=== PATIENT | male | born 1965 | race Caucasian/White ===

== ENCOUNTER 2016-06-18 13:12 | Emergency (ER) | payer OTHER | END 2016-06-18 15:14 | disposition home or self-care (01) | DX: S60.222A Contusion of left hand, initial encounter (principal); W22.8XXA Striking against or struck by other objects, initial encounter; I10 Essential (primary) hypertension; E78.00 Pure hypercholesterolemia, unspecified; E11.9 Type 2 diabetes mellitus without complications; Z79.84 Long term (current) use of oral hypoglycemic drugs; E11.65 Type 2 diabetes mellitus with hyperglycemia ==

== ENCOUNTER 2017-10-14 10:47 | Emergency (ER) | payer OTHER ==
[2017-10-14] MEDS ORDERED: LIDOCAINE 1%-EPI 1:100000 30 ML MDV SUBQ STA (12:33)
[2017-10-14] MEDS ORDERED: cephALEXin 250 MG CAPSULE PO STA (12:33)
--- NOTE | 2017-10-14 12:36 | ED Physician Documentation ---
History of Present Illness - Stated complaint Stated Complaint: R KNEE LAC - Chief complaint Chief Complaint: Laceration - Additonal information Additional information: hx from pt 52 m lac to R knee from karen aguilera Review of Systems Skin: reports: Laceration (s) PD PAST MEDICAL HISTORY - Past Medical History Past Medical History: Yes Cardiovascular: Hypertension, High cholesterol Endocrine/Autoimmune: Type 2 diabetes Psych: Post traumatic stress disorder - Past Surgical History Past Surgical History: Yes General: Cholecystectomy, Appendectomy HEENT: Rhinoplasty - Present Medications Home Medications: Ambulatory Orders Medication Instructions Recorded Confirmed Gabapentin 600 mg PO BID 11/30/15 10/14/17 Simvastatin 40 mg PO DAILY 11/30/15 10/14/17 metFORMIN [Glucophage] 500 mg PO BID 11/30/15 10/14/17 Hydrochlorothiazide/Lisinoprol 12.5 mg DAILY 02/06/16 10/14/17 Loratadine 10 mg PO DAILY 02/06/16 10/14/17 Cephalexin [Keflex] 500 mg PO Q6H #20 capsule 10/14/17 - Allergies Allergies/Adverse Reactions: Allergies Allergy/AdvReac Type Severity Reaction Status Date / Time No Known Drug Allergies Allergy Verified 10/14/17 11:08 - Social History Does the pt smoke?: No Smoking Status: Never smoker Does the pt drink ETOH?: No Does the pt have substance abuse?: No - Immunizations Immunizations are current?: Yes - POLST Patient has POLST: No PD ED PE NORMAL - Vitals Vital signs reviewed: Yes - Extremities Extremities: Other (V shaped partial thickness lac over R patella MSV intact) Results - Vitals Vitals: Vital Signs - 24 hr 10/14/17 11:02 Temperature 36.1 C L Heart Rate 77 Respiratory 18 Rate Blood Pressure 144/79 H O2 Saturation 97 Oxygen O2 Source Room air Procedures - Laceration (location) R knee Length in cm: 3 Wound type: Irregular Neurovascular status: Sensory intact, Motor intact Anesthesia: Lidocaine 1% with epi Wound Preparation: Irrigated copiously NS (by nurse Tisha) Skin layer closure: Francia, Other (3) Other: Patient tolerated well, No complications, Neurovascular intact, Dressing applied, Tetanus UTD Complexity: Simple PD MEDICAL DECISION MAKING - ED course ED course: MSE exam provided injury identified = lac with high risk for infection 2/2 organic matter wound care, francia, prophylactic ab tdap UTD feel pt safe for dc - Sepsis Event Vital Signs: Vital Signs - 24 hr 10/14/17 11:02 Temperature 36.1 C L Heart Rate 77 Respiratory 18 Rate Blood Pressure 144/79 H O2 Saturation 97 Oxygen O2 Source Room air Departure - Departure Disposition: 01 Home, Self Care Clinical Impression: Laceration Condition: Good Instructions: ED Laceration All Prescriptions: Cephalexin [Keflex] 500 mg PO Q6H #20 capsule Comments: Keep the wound clean Apply antibiotic ointment every day Take the keflex prescribed to prevent infection [place] out 10 days This wound is high rsk for infection - we washed it carefully and provided prophylactic antibitoics but it still might get infected - if you notice severe pain, swelling, excessive redness, streaking or drainage, please come back to the ER
[2017-10-14 13:39] VITALS: BP 154/92
[2017-10-14] MEDS ORDERED: BACITRACIN OINT TOP STA (13:42)
== END 2017-10-14 13:46 | disposition home or self-care (01) ==
LOC: ED 10:47
DX: S81.011A Laceration without foreign body, right knee, initial encounter (principal); W29.3XXA Contact with powered garden and outdoor hand tools and machinery, initial encounter; I10 Essential (primary) hypertension; E78.00 Pure hypercholesterolemia, unspecified; E11.9 Type 2 diabetes mellitus without complications; Z79.84 Long term (current) use of oral hypoglycemic drugs
CPT/HCPCS: 12002; 99283; A9270

== ENCOUNTER 2018-01-30 07:40 | Emergency (ER) | payer OTHER ==
[2018-01-30] MEDS ORDERED: LIDOCAINE 1%-EPI 1:100000 30 ML MDV TD STA (07:49)
[2018-01-30] MEDS ORDERED: BACITRACIN OINT TOP STA (07:50)
--- NOTE | 2018-01-30 07:53 | ED Physician Documentation ---
History of Present Illness - Stated complaint Stated Complaint: L ARM LAC/INJ - Additonal information Additional information: hx from pt 52 male slipped on ice and hit back of L FA on 5th wheel suffering a lac tdap UTD per pt Review of Systems Skin: reports: Laceration (s) PD PAST MEDICAL HISTORY - Past Medical History Cardiovascular: Hypertension, High cholesterol Endocrine/Autoimmune: Type 2 diabetes Psych: Post traumatic stress disorder - Past Surgical History Past Surgical History: Yes General: Cholecystectomy, Appendectomy HEENT: Rhinoplasty - Present Medications Home Medications: Ambulatory Orders Medication Instructions Recorded Confirmed Simvastatin 40 mg PO DAILY 11/30/15 10/14/17 metFORMIN [Glucophage] 500 mg PO BID 11/30/15 10/14/17 Loratadine 10 mg PO DAILY 02/06/16 10/14/17 Lisinopril [Prinivil] 10 mg pe 01/30/18 Paroxetine HCl [Paroxetine ER] 37.5 mg PO 01/30/18 - Allergies Allergies/Adverse Reactions: Allergies Allergy/AdvReac Type Severity Reaction Status Date / Time No Known Drug Allergies Allergy Verified 01/30/18 07:52 - Social History Does the pt smoke?: No Smoking Status: Never smoker Does the pt drink ETOH?: No Does the pt have substance abuse?: No - Immunizations Immunizations are current?: Yes - POLST Patient has POLST: No PD ED PE NORMAL - Vitals Vital signs reviewed: Yes - Extremities Extremities: Other (approx 6 inch linear lac along posterior/ulnar aspect L FA, MSV intact, TTP and STS but no bony TTP) Results - Vitals Vitals: Vital Signs - 24 hr 01/30/18 07:50 Temperature 36.4 C L Heart Rate 62 Respiratory 20 Rate Blood Pressure 187/106 H O2 Saturation 96 Oxygen O2 Source Room air - Rads (name of study) elbow and FA Radiology: See rad report (neg) Procedures - Laceration (location) L FA Length in cm: 8 Wound type: Linear Neurovascular status: Sensory intact, Motor intact Anesthesia: Lidocaine 1% with epi Wound Preparation: Irrigated copiously NS (by ER staff), Wound explored, To the base. No: FB identified Skin layer closure: Nylon, Interrupted, Size #-0 - enter number (4), Sutures - enter # (15) Other: Patient tolerated well, No complications, Neurovascular intact, Dressing applied, Tetanus UTD Complexity: Simple Departure - Departure Disposition: Home, Self Care Clinical Impression: Laceration Condition: Good Instructions: ED Laceration All Follow-Up: KEYANA BARNHART [Primary Care Provider] - Comments: The xrays are fine - no broken bones Even with good wound care some wound can become infected. It is important that you wash to wound every day and apply antibiotic ointment twice a day. If any redness or streak or fever or drainage develop, please come back to the ER. Else suture can be removed in 10 days - you PMD can probably do that or you can come back to the ER Your blood pressure was high today - please follow up with your PMD for a recheck
[2018-01-30] MEDS ORDERED: IBUPROFEN 400 MG TABLET PO STA (08:12)
[2018-01-30] MEDS ORDERED: ACETAMINOPHEN 325 MG TABLET PO STA (08:12)
--- NOTE | 2018-01-30 09:01 | XRAY Report ---
Reason: fall Procedure Date: 01/30/2018 Accession Number: [id number] / [id number] Procedure: XR - Forearm LT CPT Code: FULL RESULT: EXAM: LEFT ELBOW RADIOGRAPHY LEFT FOREARM RADIOGRAPHY EXAM DATE: 01/30/2018 08:44 AM. CLINICAL HISTORY: Fall. COMPARISON: None. TECHNIQUE: Left Elbow 3 views, left forearm 2 views. FINDINGS: Bones: Normal. No fractures or bone lesions. Joints: Normal. No effusion. No subluxation. Soft Tissues: Normal. No soft tissue swelling. IMPRESSION: 1. Normal left elbow radiography. 2. Normal left forearm radiography. [facility]
--- NOTE | 2018-01-30 09:01 | XRAY Report ---
Reason: fall Procedure Date: 01/30/2018 Accession Number: [id number] / [id number] Procedure: XR - Elbow 3 View LT CPT Code: FULL RESULT: EXAM: LEFT ELBOW RADIOGRAPHY LEFT FOREARM RADIOGRAPHY EXAM DATE: 01/30/2018 08:44 AM. CLINICAL HISTORY: Fall. COMPARISON: None. TECHNIQUE: Left Elbow 3 views, left forearm 2 views. FINDINGS: Bones: Normal. No fractures or bone lesions. Joints: Normal. No effusion. No subluxation. Soft Tissues: Normal. No soft tissue swelling. IMPRESSION: 1. Normal left elbow radiography. 2. Normal left forearm radiography. [facility]
[2018-01-30 09:29] VITALS: BP 148/92
== END 2018-01-30 09:28 | disposition home or self-care (01) ==
LOC: ED 07:40
DX: S51.812A Laceration without foreign body of left forearm, initial encounter (principal); W00.0XXA Fall on same level due to ice and snow, initial encounter; I10 Essential (primary) hypertension; E78.00 Pure hypercholesterolemia, unspecified; E11.9 Type 2 diabetes mellitus without complications; Z79.84 Long term (current) use of oral hypoglycemic drugs
CPT/HCPCS: 12015; 73080; 73090; 99283; A9270

== ENCOUNTER 2018-07-17 08:55 | Emergency (ER) | payer OTHER ==
[2018-07-17 09:03] VITALS: BP 183/96
[2018-07-17] MEDS ORDERED: KETOROLAC 60 MG/2 ML VIAL IM STA (09:57)
[2018-07-17] MEDS ORDERED: CHERRY SYRUP 10 ML UDC PO ONE (09:57)
[2018-07-17] MEDS ORDERED: DEXAMETHASONE 10 MG/ML VIAL PO STA (09:57)
--- NOTE | 2018-07-17 10:00 | ED Physician Documentation ---
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 Review of Systems Constitutional: denies: Fever Eyes: denies: Decreased vision Ears: denies: Ear pain Nose: denies: Congestion Throat: denies: Sore throat Cardiac: reports: Chest pain / pressure. denies: Palpitations, Pedal edema, Calf pain Respiratory: denies: Dyspnea, Cough, Wheezing GI: denies: Abdominal Pain, Nausea, Vomiting : denies: Dysuria, Frequency PD PAST MEDICAL HISTORY - Past Medical History Past Medical History: Yes Cardiovascular: Hypertension, High cholesterol Endocrine/Autoimmune: Type 2 diabetes Psych: Post traumatic stress disorder - Past Surgical History Past Surgical History: Yes General: Cholecystectomy, Appendectomy HEENT: Rhinoplasty - Present Medications Home Medications: Ambulatory Orders Medication Instructions Recorded Confirmed Simvastatin 40 mg PO DAILY 11/30/15 07/17/18 metFORMIN [Glucophage] 500 mg PO BID 11/30/15 07/17/18 Loratadine 10 mg PO DAILY 02/06/16 07/17/18 Lisinopril [Prinivil] 10 mg PO DAILY 01/30/18 07/17/18 Paroxetine HCl [Paroxetine ER] 37.5 mg PO 01/30/18 Hydrocodone/Acetaminophen 1 - 2 each PO Q6H PRN #14 tablet 07/17/18 [Hydrocodon-Acetaminophen 5-325] - Allergies Allergies/Adverse Reactions: Allergies Allergy/AdvReac Type Severity Reaction Status Date / Time No Known Drug Allergies Allergy Verified 07/17/18 09:03 - Social History Does the pt smoke?: No Smoking Status: Never smoker Does the pt drink ETOH?: No Does the pt have substance abuse?: No - Immunizations Immunizations are current?: Yes - POLST Patient has POLST: No PD ED PE NORMAL - Vitals Vital signs reviewed: Yes (hypertensive ) - General General: Alert and oriented X 3, No acute distress, Well developed/nourished - HEENT HEENT: Atraumatic, PERRL, EOMI - Neck Neck: Supple, no meningeal sign, No bony TTP - Cardiac Cardiac: RRR, No murmur - Respiratory Respiratory: No respiratory distress, Clear bilaterally, Other (point tenderness to the lateral lower right chest wall over the ribs.) - Abdomen Abdomen: Soft, Non tender - Back Back: No CVA TTP, No spinal TTP - Derm Derm: Normal color, Warm and dry, No rash - Extremities Extremities: No deformity, No edema - Neuro Neuro: Alert and oriented X 3, upkeep mechanic 2-12 intact, No motor deficit, No sensory deficit, Normal speech Eye Opening: Spontaneous Motor: Obeys Commands Verbal: Oriented GCS Score: 15 - Psych Psych: Normal mood, Normal affect Results - Vitals Vitals: Vital Signs - 24 hr 07/17/18 09:01 Temperature 36.8 C Heart Rate 61 Respiratory 18 Rate Blood Pressure 183/96 H O2 Saturation 97 Oxygen O2 Source Room air - Rads (name of study) ribs with PA chest Radiology: Prelim report reviewed (Impression: 1. No acute cardiopulmonary abnormality. 2. No definite fractures. Please note that a nondisplaced rib fracture may be radiographically inapparent), EMP read indepedently, See rad report PD MEDICAL DECISION MAKING - ED course Complexity details: reviewed results, re-evaluated patient, considered differential, d/w patient ED course: 52-year-old male with right-sided chest wall strain is administered dexamethasone and Toradol for acute pain control. Departure - Departure Disposition: 01 Home, Self Care Clinical Impression: Strain of chest wall Qualifiers: Encounter type: initial encounter Qualified Code(s): S29.011A - Strain of muscle and tendon of front wall of thorax, initial encounter Condition: Stable Instructions: ED Contusion Chest Wall Follow-Up: KEYANA BARNHART [Primary Care Provider] - Prescriptions: Hydrocodone/Acetaminophen [Hydrocodon-Acetaminophen 5-325] 1 - 2 each PO Q6H PRN #14 tablet PRN Reason: pain Forms: Activity restrictions
--- NOTE | 2018-07-17 10:24 | XRAY Report ---
Reason: strain of chest wall Procedure Date: 07/17/2018 Accession Number: [id number] / [id number] Procedure: XR - Ribs w/PA Chest RT CPT Code: FULL RESULT: EXAM: RIGHT RIB RADIOGRAPHY EXAM DATE: 07/17/2018 10:14 AM. CLINICAL HISTORY: Strain of chest wall. COMPARISON: None. TECHNIQUE: 1 view of the chest and 2 views of the ribs. FINDINGS: Bones: Normal. No fracture or bone lesion. Lungs: No focal opacities. No pneumothorax. No pleural effusions. Mediastinum: Heart and mediastinal contours are unremarkable. Other: None. IMPRESSION: 1. No acute cardiopulmonary abnormality. 2. No definite fractures. Please note that a nondisplaced rib fracture may be radiographically inapparent. RAD[facility]
== END 2018-07-17 11:04 | disposition home or self-care (01) ==
LOC: ED 08:55
DX: S29.011A Strain of muscle and tendon of front wall of thorax, initial encounter (principal); X50.0XXA Overexertion from strenuous movement or load, initial encounter; Y93.89 Activity, other specified; I10 Essential (primary) hypertension; E11.9 Type 2 diabetes mellitus without complications; Z79.84 Long term (current) use of oral hypoglycemic drugs
CPT/HCPCS: 96372; 99283

== ENCOUNTER 2020-05-06 12:00 | Emergency (ER) | payer OTHER ==
--- NOTE | 2020-05-06 12:59 | XRAY Report ---
PROCEDURE: Wrist 4 View RT INDICATIONS: Trauma TECHNIQUE: 4 views of the wrist were acquired. COMPARISON: None FINDINGS: Bones: No fractures or dislocations. There is a well-corticated ovoid fragment distal to the ulnar s tyloid suggestive of remote injury. There are a few mariama-like osseous fragments adjacent to this, po tentially chondrocalcinosis of the triangular fibrocartilage. No suspicious bony lesions. Scaphoid view: Intact scaphoid Soft tissues: No suspicious soft tissue calcifications. IMPRESSION: 1. No acute fractures of the wrist are visible. 2. Punctate calcifications distal to the ulna, potentially calcifications of triangular fibrocartilag e. 3. Probable remote ulnar styloid avulsion. 4. Persistent post conservative management, MR of the wrist for evaluation of intrinsic soft tissues is recommended. Reviewed by: Trish Babcock MD on 05/06/2020 11:58 AM [facility] Approved by: Trish Babcock MD on 05/06/2020 11:58 AM [facility] Station ID: [id number]
[2020-05-06 14:06] VITALS: BP 146/79
--- NOTE | 2020-05-06 17:04 | ED Physician Documentation ---
History of Present Illness - Stated complaint Stated Complaint: RT WRIST PX - Chief complaint Chief Complaint: Ext Problem - History obtained from History obtained from: Patient - Additonal information Additional information: 54-year-old man with past medical history of R wrist fx remotely p/w New onset right wrist pain after swinging a bag over his head and hyperextending the fingers. Patient states that the pain was sudden onset, aching, nonradiating, localized in the right wrist and hand, not associated with swelling. Worse with range of motion of the wrist. This occurred a week ago and he has been wearing a brace but now he has worsening pain with range of motion, worst at the ulnar aspect of the wrist. no other complaints Review of Systems Skin: denies: Lesions Musculoskeletal: reports: Extremity pain, Joint pain Neurologic: denies: Focal weakness, Numbness PD PAST MEDICAL HISTORY - Past Medical History Cardiovascular: Hypertension, High cholesterol Endocrine/Autoimmune: Type 2 diabetes Psych: Post traumatic stress disorder - Past Surgical History Past Surgical History: Yes General: Cholecystectomy, Appendectomy HEENT: Rhinoplasty - Present Medications Home Medications: Ambulatory Orders Medication Instructions Recorded Confirmed Simvastatin 40 mg PO DAILY 11/30/15 05/06/20 Loratadine 10 mg PO DAILY 02/06/16 05/06/20 Lisinopril [Prinivil] 10 mg PO DAILY 01/30/18 05/06/20 Paroxetine HCl [Paroxetine ER] 37.5 mg PO DAILY 01/30/18 05/06/20 - Allergies Allergies/Adverse Reactions: Allergies Allergy/AdvReac Type Severity Reaction Status Date / Time No Known Drug Allergies Allergy Verified 05/06/20 12:02 - Social History Does the pt smoke?: No Smoking Status: Never smoker Does the pt drink ETOH?: No Does the pt have substance abuse?: No - Immunizations Immunizations are current?: Yes - POLST Patient has POLST: No PD ED PE NORMAL - Vitals Vital signs reviewed: Yes - General General: Alert and oriented X 3 - HEENT HEENT: Atraumatic - Derm Derm: Normal color, Warm and dry, No rash - Extremities Extremities: No deformity, Other (ulnar styloid ttp. tender with rom of R wrist. normal sensation, cap refill, rom of fingers. 2+ radial pulses bl) Results - Vitals Vitals: Vital Signs - 24 hr 05/06/20 05/06/20 12:04 14:05 Temperature 36.9 C 36.9 C Heart Rate 77 78 Respiratory 19 18 Rate Blood Pressure 177/99 H 146/79 H O2 Saturation 100 100 Oxygen O2 Source Room air PD MEDICAL DECISION MAKING - ED course ED course: 54-year-old man presents with right wrist pain, with evidence of ulnar styloid fracture that may be old vs occurring a week ago. Splint placed. f/u ortho. return precautions given. Departure - Departure Disposition: 01 Home, Self Care Clinical Impression: Fracture of ulnar styloid, Wrist pain Condition: Good Instructions: ED RICE Follow-Up: Bob Fallon MD [Provider Admit Priv/Credential] - Comments: You have been seen in the emergency department for right wrist pain. It looks like you have an ulnar styloid fracture or break in the bone. You should follow-up with orthopedics in 1 week if your symptoms do not improve with conservative measures and have a repeat x-ray or even an MRI. Return to the emergency department for any new or worsening symptoms or other concerns. Return if you have numbness or weakness in the fingers or wrist. Discharge Date/Time: 05/06/20 14:05
== END 2020-05-06 14:05 | disposition home or self-care (01) ==
LOC: ED 12:00
DX: S52.611A Displaced fracture of right ulna styloid process, initial encounter for closed fracture (principal); X50.0XXA Overexertion from strenuous movement or load, initial encounter; Y93.89 Activity, other specified; I10 Essential (primary) hypertension; E11.9 Type 2 diabetes mellitus without complications
CPT/HCPCS: 99283

== ENCOUNTER 2021-06-24 18:59 | Emergency (ER) | payer OTHER ==
[2021-06-24 21:06] LABS: BILIRUBIN,URINE NEGATIVE (NEGATIVE); GLUCOSE, URINE (UA) >=1000 mg/dL (NEGATIVE); KETONES,URINE (UA) 40 mg/dL (NEGATIVE); LEUKOCYTE ESTERASE, URINE NEGATIVE (NEGATIVE); NITRITE,URINE NEGATIVE (NEGATIVE); OCCULT BLOOD,URINE NEGATIVE (NEGATIVE); PROTEIN,URINE NEGATIVE (NEGATIVE); UROBILINOGEN,URINE 0.2 (NORMAL) E.U./dL (NORMAL)
[2021-06-24 21:07] LABS: CLARITY,URINE CLEAR (CLEAR)
[2021-06-24 21:15] LABS: BASOPHILS % (AUTO) 0.4 %; EOSINOPHILS # (AUTO) 0.1 10^3/uL (0.0-0.7); EOSINOPHILS % (AUTO) 0.8 %; HCT - HEMATOCRIT 49.9 % (42.0-52.0); HGB - HEMOGLOBIN 16.7 g/dL (14.0-18.0); LYMPHOCYTES # (AUTO) 2.2 10^3/uL (1.5-3.5); LYMPHOCYTES % (AUTO) 24.2 %; MEAN CORPUSCULAR HEMOGLOBIN 31.4 pg (27.0-31.0); MEAN CORPUSCULAR HGB CONC 33.5 g/dL (32.0-36.0); MEAN CORPUSCULAR VOLUME 93.8 fL (80.0-94.0); MEAN PLATELET VOLUME 9.3 fL (7.4-11.4); MONOCYTES # (AUTO) 0.6 10^3/uL (0.0-1.0); MONOCYTES % (AUTO) 7.1 %; NEUTROPHILS # (AUTO) 6.1 10^3/uL (1.5-6.6); NEUTROPHILS % (AUTO) 67.3 %; PLT - PLATELET COUNT 233 10^3/uL (130-450); RED BLOOD COUNT 5.32 10^6/uL (4.70-6.10); RED CELL DISTRIBUTION WIDTH 12.6 % (12.0-15.0)
[2021-06-24 21:44] LABS: ALBUMIN 4.8 g/dL (3.2-5.5); ALBUMIN/GLOBULIN RATIO 1.8 (1.0-2.2); BILIRUBIN,TOTAL 0.9 mg/dL (0.2-1.0); CALCIUM 9.2 mg/dL (8.5-10.3); CREATININE 0.9 mg/dL (0.6-1.2); POTASSIUM 3.6 mmol/L (3.5-5.0); TOTAL PROTEIN 7.4 g/dL (6.7-8.2)
--- NOTE | 2021-06-24 22:36 | CT Report ---
PROCEDURE: Abdomen/Pelvis WO INDICATIONS: back pain TECHNIQUE: Noncontrast 5 mm thick sections acquired from the diaphragms to the symphysis. 5 mm coronal and sagi ttal reformats were then performed. For radiation dose reduction, the following was used: automated exposure control, adjustment of mA and/or kV according to patient size. COMPARISON: None. FINDINGS: Image quality: Excellent. ABDOMEN: Lung bases: Lung bases are clear. Heart size is normal. Solid organs: Noncontrast evaluation of the liver demonstrates no discrete mass lesion. Gallbladder appears within normal limits without calcified gallstones. Pancreas is normal in contours. The spleen is normal in size. No adrenal nodules. Kidneys are normal in size, without hydronephrosis or nephro lithiasis. Peritoneum and bowel: Small and large bowel loops demonstrate normal wall thickness and caliber. No pericecal inflammatory changes to suggest appendicitis. There is colonic diverticulosis without acute diverticulitis. No free fluid or air. Nodes and vessels: No retroperitoneal or mesenteric adenopathy by size criteria. Aorta and inferior vena cava are normal in caliber. Miscellaneous: No ventral hernias. PELVIS: Genitourinary: Bladder wall thickness is normal. Miscellaneous: No inguinal hernias or adenopathy. Bones: No suspicious bony lesions. No vertebral body compression fractures. There is minimal retrol isthesis at L2-L3 and L3-L4. Mild to moderate degenerative disease demonstrated throughout the lumbar spine. There is also mild facet arthropathy in the lower lumbar spine. IMPRESSION: 1. No evidence of nephrolithiasis or obstructive uropathy. 2. Mild to moderate multilevel degenerative disc disease throughout the lumbar spine with mild facet arthropathy also demonstrated in the lower lumbar spine. 3. Colonic diverticulosis without acute diverticulitis. Reviewed by: Elroy Salvador MD on 06/24/2021 10:34 PM PDT Approved by: Elroy Salvador MD on 06/24/2021 10:34 PM PDT Station ID: [id number]
--- NOTE | 2021-06-24 22:44 | Ultrasound Report ---
PROCEDURE: Testicle w/Doppler INDICATIONS: L testicular pain TECHNIQUE: Real-time scanning was performed of the scrotum and testicles, with image documentation. Color and p ulse Doppler interrogation was performed of both testicles. COMPARISON: None. FINDINGS: Right: Testicle is normal in size at 4.4 x 2.3 x 3.2 cm, and appears homogenous in echotexture. Epi didymis is normal in overall size and morphology. There is a minimal hydrocele. No varicoceles. Ove rlying scrotal skin is normal in thickness. Left: Testicle is normal in size at 4.3 x 2.4 x 2.9 cm and appears homogeneous in echotexture. There is a small anechoic cyst within the left testicle measuring up to 0.4 x 0.2 cm. Epididymis is normal in overall size and morphology. There is a small left varicocele. Overlying scrotal skin is normal in thickness. Doppler: Color and pulse Doppler demonstrate patent arterial and venous flow in both testicles. IMPRESSION: 1. No evidence of testicular torsion. 2. Minimal bilateral hydroceles. Reviewed by: Elroy Nazario MD on 06/24/2021 10:42 PM PDT Approved by: Elroy Nazario MD on 06/24/2021 10:42 PM PDT Station ID: [id number]
[2021-06-24] MEDS ORDERED: LIDOCAINE PATCH 5% TOP STA (23:02)
--- NOTE | 2021-06-24 23:04 | ED Physician Documentation ---
PD HPI MALE - Stated complaint Stated Complaint: BACK PX,MALE - Chief complaint Chief Complaint: Back Pain - History obtained from History obtained from: Patient - Additional information Additional information: Patient is a 55-year-old male with a history significant for diabetes and hypertension presenting for evaluation of low back pain and achiness to his scrotum. Patient reports having chronic back pain but it has been worse in the last 10 days. It feels better when he is laying down and worse when he is standing or leaning forward. He denies any recent trauma or injury. Pain does not radiate elsewhere. He also reports feeling an ache sensation in his scrotum. Denies hematuria, dysuria, abdominal pain, nausea, vomiting, penile discharge, concern for STD, lower extremity Weakness.Patient denies fever Or injections to his back. He does not have cancer.Denies chest pain or difficulty breathing. Review of Systems Constitutional: denies: Fever Nose: denies: Congestion Cardiac: denies: Chest pain / pressure, Palpitations Respiratory: denies: Dyspnea, Cough GI: denies: Nausea, Vomiting : reports: Testicular pain. denies: Dysuria, Hematuria Skin: denies: Rash Musculoskeletal: reports: Back pain. denies: Neck pain Neurologic: denies: Syncope, Headache PD PAST MEDICAL HISTORY - Past Medical History Past Medical History: Yes Cardiovascular: Hypertension, High cholesterol Endocrine/Autoimmune: Type 2 diabetes Psych: Post traumatic stress disorder Musculoskeletal: Chronic back pain - Past Surgical History Past Surgical History: Yes General: Cholecystectomy, Appendectomy HEENT: Rhinoplasty - Present Medications Home Medications: Ambulatory Orders Medication Instructions Recorded Confirmed Simvastatin 40 mg PO DAILY 11/30/15 06/24/21 Loratadine 10 mg PO DAILY 02/06/16 06/24/21 PARoxetine HCL [Paroxetine ER] 37.5 mg PO DAILY 01/30/18 06/24/21 lisinopriL [Prinivil] 10 mg PO DAILY 01/30/18 06/24/21 - Allergies Allergies/Adverse Reactions: Allergies Allergy/AdvReac Type Severity Reaction Status Date / Time No Known Drug Allergies Allergy Verified 06/24/21 19:22 - Social History Does the pt smoke?: No Smoking Status: Never smoker Does the pt drink ETOH?: No Does the pt have substance abuse?: No - Immunizations Immunizations are current?: Yes - POLST Patient has POLST: No PD ED PE NORMAL - General General: Alert and oriented X 3, No acute distress, Well developed/nourished - HEENT HEENT: Atraumatic, Moist mucous membranes - Neck Neck: Supple, no meningeal sign - Cardiac Cardiac: RRR, No murmur, Strong equal pulses - Respiratory Respiratory: No respiratory distress, Clear bilaterally - Abdomen Abdomen: Normal bowel sounds, Soft, Non tender, Non distended, Other (No pulsatile mass) - Male Male : Straightening Machine Feeder present (DENISE Gonzalez), Other (No testicular tenderness, swelling, rash, normal-appearing penis, no discharge, no lesions, No hernia) - Back Back: No CVA TTP, No spinal TTP - Derm Derm: Normal color, Warm and dry, No rash - Extremities Extremities: No deformity, No edema, No calf tenderness / cord, Other (Intact distal pulses) - Neuro Neuro: Alert and oriented X 3, No motor deficit, No sensory deficit, Normal speech - Psych Psych: Normal mood, Normal affect Results - Vitals Vitals: Vital Signs - 24 hr 06/24/21 06/24/21 19:19 23:12 Temperature 36.4 C L 36.6 C Heart Rate 71 61 Respiratory 18 17 Rate Blood Pressure 154/77 H 138/76 H O2 Saturation 97 96 Oxygen O2 Source Room air - Labs Labs: Laboratory Tests 06/24/21 06/24/21 06/24/21 20:06 21:00 21:00 WBC 9.0 RBC 5.32 Hgb 16.7 Hct 49.9 MCV 93.8 MCH 31.4 H MCHC 33.5 RDW 12.6 Plt Count 233 MPV 9.3 Neut # (Auto) 6.1 Lymph # (Auto) 2.2 [place] # (Auto) 0.6 Eos # (Auto) 0.1 Baso # (Auto) 0.0 Absolute Nucleated RBC 0.00 Nucleated RBC % 0.0 Sodium 139 Potassium 3.6 Chloride 100 L Carbon Dioxide 26 Anion Gap 13.0 BUN 13 Creatinine 0.9 Estimated GFR (MDRD) 88 L Glucose 95 Calcium 9.2 Total Bilirubin 0.9 AST 27 ALT 30 Alkaline Phosphatase 52 Total Protein 7.4 Albumin 4.8 Globulin 2.6 Albumin/Globulin Ratio 1.8 Urine Color YELLOW Urine Clarity CLEAR Urine pH 6.0 Ur Specific [place] 1.020 Urine Protein NEGATIVE Urine Glucose (UA) >=1000 H Urine Ketones 40 H Urine Occult Blood NEGATIVE Urine Nitrite NEGATIVE Urine Bilirubin NEGATIVE Urine Urobilinogen 0.2 (NORMAL) Ur Leukocyte Esterase NEGATIVE Ur Microscopic Review NOT INDICATED Urine Culture Comments NOT INDICATED PD MEDICAL DECISION MAKING - ED course Complexity details: reviewed results, d/w patient ED course: Patient presenting for evaluation of low back pain and ache in his groin. Overall exam is reassuring with no signs of testicular torsion or Scrotal cellulitis. Labs are reviewed and without significant abnormality. CT abdomen and pelvis does not show a stoneOr other significant abnormality. Ultrasound of his testicles is fairly unremarkable. Patient's pain has improved while in the emergency department. No red flag signs or symptoms regarding his back pain. He is ambulatory without difficulty. He is aware of need for follow-up with his primary care doctor as well as strict return precautions. Departure - Departure Disposition: 01 Home, Self Care Clinical Impression: Bilateral groin pain Back pain Qualifiers: Back pain location: low back pain Chronicity: chronic Back pain laterality: midline Sciatica presence: without sciatica Qualified Code(s): M54.50 - Low back pain, unspecified Condition: Stable Instructions: ED Neck Back Pain General Comments: Your evaluated for pain in your back as well as your groin. Your labs were reassuring and your urine did not show an infection. Your CT scan of your abdomen and pelvis showed degenerative disc disease in your low back but otherwise there were no abnormalities. Your ultrasound also did not show any significant abnormalities to your scrotum or testicles. You can try medications such as ibuprofen, Tylenol, lidocaine patches as needed for your pain.You should also follow-up with your primary care doctor regarding your symptoms if they do not improve in the next 3 days.If you have any worsening symptoms such as worsening pain to your back,Pain in a new area, difficulty controlling your urine or bowel movements, weakness to your legs, numbness,Fever, abdominal pain, swelling or worsening pain in your groin please return to the emergency department. Discharge Date/Time: 06/24/21 23:29
[2021-06-24 23:13] VITALS: BP 138/76
[2021-06-25 05:28] LABS: CHLAMYDIA TRACHOMATIS DNA NEGATIVE (NEGATIVE); NEISSERIA GONORRHOEAE DNA NEGATIVE (NEGATIVE)
== END 2021-06-24 23:29 | disposition home or self-care (01) ==
LOC: ED 18:59
DX: M54.50 Low back pain, unspecified (principal); R10.32 Left lower quadrant pain; R10.31 Right lower quadrant pain
CPT/HCPCS: 36415; 74176; 76870; 80053; 81003; 85025; 87491; 87591; 93975; 99282; 99284; A9270; 81001; 87086; 87661